=== PATIENT | male | born 1945 | race Caucasian/White ===

== ENCOUNTER 2018-01-29 18:52 | Emergency (ER) | payer MEDICAID, MEDICARE ==
[2018-01-29 19:01] VITALS: RESP 16
[2018-01-29 19:48] LABS: BASO % 0.5 % (0.0-2.0); EOS % 0.2 % (0.0-4.0); HEMOGLOBIN 12.9 g/dL (12.0-18.0); LYMPH # 1.8 K/uL (1.0-4.3); LYMPH % 35.3 % (20.0-40.0); MEAN CELL VOLUME 103.2 fL (80.0-94.0); MEAN CORPUSCULAR HEMOGLOBIN 36.5 pg (27.0-31.0); MEAN CORPUSCULAR HGB CONC 35.3 g/dL (33.0-37.0); MEAN PLATELET VOLUME 8.3 fL (7.2-11.7); MONO # 0.6 K/uL (0.0-0.8); MONO % 11.5 % (0.0-10.0); NEUT # 2.7 K/uL (1.8-7.0); NEUT % 52.5 % (50.0-75.0); NRBC % 0.1 % (0.0-2.0); RBC 3.55 Mil/uL (4.40-5.90); RED CELL DISTRIBUTION WIDTH 12.5 % (11.5-14.5); WHITE BLOOD COUNT 5.2 K/uL (4.8-10.8)
[2018-01-29 19:54] LABS: SQUAMOUS EPITHIAL < 1 /hpf (0-5); URINE BILIRUBIN NEGATIVE (NEGATIVE); URINE BLOOD NEGATIVE (NEGATIVE); URINE CLARITY Clear (Clear); URINE COLOR Yellow (YELLOW); URINE GLUCOSE (UA) NORMAL (Normal); URINE LEUKOCYTE ESTERASE NEG Leu/uL (Negative); URINE PROTEIN NEGATIVE (NEGATIVE)
[2018-01-29 20:00] LABS: ALB/GLOB RATIO 1.1 (1.0-2.1); CALCIUM 9.1 mg/dl (8.6-10.4); GFR AFRICAN-AMERICAN > 60; GFR NON-AFRICAN AMERICAN > 60; LIPASE 71 U/L (23-300)
[2018-01-29 20:03] LABS: ALT/SGPT 33 U/L (21-72); AST/SGOT 45 U/L (17-59); BLOOD UREA NITROGEN 17 mg/dL (9-20)
--- NOTE | 2018-01-29 21:12 | US ---
EXAM: US Abdomen Limited, Right Upper Quadrant CLINICAL HISTORY: 72 years old, male; Pain; Abdominal pain; Other: Ruq; Additional info: Ruq pain TECHNIQUE: Real-time ultrasound of the right upper quadrant with image documentation. COMPARISON: No relevant prior studies available. FINDINGS: Liver: Measured at 15 cm. Gallbladder: No gallstones visualized. No gallbladder wall thickening. Common bile duct: Measured at 6 mm. Pancreas: Limited evaluation. Right kidney: No acute abnormality as visualized. No hydronephrosis. IMPRESSION: No cholelithiasis visualized. Common bile duct measured at 6 mm. Reported positive sonographic Flynn's sign. Correlate clinically. Followup as warranted.
[2018-01-29] MEDS ORDERED: Sodium Chloride 0.9% 1,000 ML IV ONE (21:49)
[2018-01-29] MEDS ORDERED: Iohexol 300 100 ML IJ ONE (21:52)
[2018-01-29 23:11] VITALS: BP 173/87; PULSE 66; TEMP 98.3; O2SAT 97
--- NOTE | 2018-01-29 23:19 | CT ---
EXAM: CT Abdomen and Pelvis With Intravenous Contrast EXAM DATE/TIME: 01/29/2018 9:26 PM CLINICAL HISTORY: 72 years old, male; Pain; Abdominal pain; Flank; Right upper quadrant (ruq); Additional info: Ruq pain/tenderness TECHNIQUE: Axial computed tomography images of the abdomen and pelvis with intravenous contrast. All CT scans at this facility use one or more dose reduction techniques, viz.: automated exposure control; ma/kV adjustment per patient size (including targeted exams where dose is matched to indication; i.e. head); or iterative reconstruction technique. Coronal and sagittal reformatted images were created and reviewed. CONTRAST: 100 mL of omnipaque 00 administered intravenously. COMPARISON: US - RIGHT UPPER QUADRANT 2018-01-29 20:12 FINDINGS: The liver, spleen and pancreas are normal. No gallstones. No hydronephrosis or perinephric stranding. The right colon is distended with stool consistent with mild constipation. The appendix is not identified however there are no secondary signs of appendicitis. There is ill-defined low attenuation between the femoral vessels and inguinal canal series 3 images 125 through 128 of uncertain etiology. This may just represent a small amount of fluid. I cannot connect it to bowel.If there are prior studies, I would be happy to correlate them to determine whether this is a chronic finding. Mild degenerative changes L5-S1. IMPRESSION: Mild right-sided constipation.
--- NOTE | 2018-01-29 23:27 | C.PDOC ---
Time Seen by Provider: 01/29/18 19:15 Chief Complaint (Nursing): Abdominal Pain History Per: Patient, Family Onset/Duration Of Symptoms: Days (4) Current Symptoms Are (Timing): Still Present Severity: Moderate Location Of Pain/Discomfort: RUQ Radiation Of Pain To:: None Quality Of Discomfort: "Pain" Exacerbating Factors: Movement Alleviating Factors: None Additional History Per: Prior Records Past Medical History Reviewed: Historical Data, Nursing Documentation, Vital Signs Vital Signs: Last Vital Signs Temp 98.3 F 01/29/18 23:10 Pulse 66 01/29/18 23:10 Resp 16 01/29/18 23:10 BP 173/87 H 01/29/18 23:10 Pulse Ox 97 01/29/18 23:10 - Medical History PMH: No Chronic Diseases Surgical History: No Surg Hx - [facility] Procedures OTH & OPEN REPAIR INDIRECT INGUINAL HERNIA W GRFT OR PROSTH (02/28/13) Family History: States: Unknown Family Hx - Social History Hx Alcohol Use: Yes Hx Substance Use: No - Immunization History Hx Tetanus Toxoid Vaccination: No Hx Influenza Vaccination: No Hx Pneumococcal Vaccination: No Review Of Systems Except As Marked, All Systems Reviewed And Found Negative. Constitutional: Negative for: Fever, Weakness Cardiovascular: Negative for: Chest Pain Respiratory: Negative for: Cough, Shortness of Breath, Hemoptysis Gastrointestinal: Positive for: Abdominal Pain, Constipation. Negative for: Nausea, Vomiting, Diarrhea, Melena, Hematochezia, Hematemesis Genitourinary: Negative for: Dysuria Musculoskeletal: Negative for: Neck Pain, Back Pain Skin: Negative for: Rash Neurological: Negative for: Weakness, Numbness Physical Exam - Physical Exam Appears: Non-toxic, No Acute Distress Skin: Normal Color, Warm, Dry, No Rash Head: Atraumatic, Normacephalic Eye(s): bilateral: Normal Inspection, PERRL, EOMI Neck: Normal ROM, Supple Chest: Symmetrical, No Deformity, No Tenderness, No Ecchymosis, No Subcutaneous Emphysema Cardiovascular: Rhythm Regular Respiratory: Normal Breath Sounds, No Accessory Muscle Use Gastrointestinal/Abdominal: Soft, Tenderness (RUQ), No Distention Back: No CVA Tenderness Extremity: Normal ROM, No Pedal Edema, No Calf Tenderness Neurological/Psych: Oriented x3, Normal Motor, Normal Sensation ED Course And Treatment - Laboratory Results Result Diagrams: 01/29/18 19:43 05/25/18 19:43 Lab Interpretation: No Acute Changes O2 Sat by Pulse Oximetry: 97 Pulse Ox Interpretation: Normal - Radiology CXR: Interpreted by Me, Viewed By Me CXR Interpretation: Yes: No Acute Disease - CT Scan/US RUQ Sono Other Rad Studies (CT/US): Read By Radiologist, Radiology Report Reviewed CT/US Interpretation: IMPRESSION: No cholelithiasis visualized. Common bile duct measured at 6 mm. Reported. positive sonographic Flynn's sign. Correlate clinically. Followup as. warranted. CT abd/pelv Other Rad Studies (CT/US): Read By Radiologist, Radiology Report Reviewed CT/US Interpretation: IMPRESSION: . Mild right-sided constipation. Progress Note: Pt feels better and wants to leave right now. Reevaluation Time: 23:28 Reassessment Condition: Improved Disposition Counseled Patient/Family Regarding: Studies Performed, Diagnosis, Need For Followup, Rx Given - Disposition Referrals: Mariana Bullock MD [Staff Provider] - Disposition: HOME/ ROUTINE Disposition Time: 23:29 Condition: STABLE Additional Instructions: Follow up with your doctor for further evaluation and treatment, including colonoscopy. Return to the ER if you develop fever, vomiting, bloody or black stools, shortness of breath, chest pain, worsening of symptoms or if you have any other concerns. Prescriptions: Pantoprazole Sodium [Protonix] 40 mg PO DAILY #14 ect Polyethylene Glycol 3350 [Miralax] 17 gm PO DAILY #7 packet Instructions: Constipation, Adult (DC) Forms: [employer] ([place] African) Print Language: SETS[place] - Clinical Impression Clinical Impression: RUQ abdominal pain, Constipation
--- NOTE | 2018-01-30 11:02 | RAD ---
HISTORY: RUQ pain COMPARISON: No prior. FINDINGS: LUNGS: Reticular markings are questioned increased at the bilateral apices versus artifact from the patient's hair. The former is favored. Findings may reflect post granulomatous change. Clinically correlate further. PLEURA: No significant pleural effusion identified, no pneumothorax apparent. CARDIOVASCULAR: Normal. OSSEOUS STRUCTURES: No significant abnormalities. VISUALIZED UPPER ABDOMEN: Normal. OTHER FINDINGS: None. IMPRESSION: Potentially chronic granulomatous changes bilateral apices although an acute interstitial process is not excluded. Clinical correlation is recommended.
== END 2018-01-29 23:52 | disposition home or self-care (01) ==
LOC: C.ER 18:52
DX: K59.00 Constipation, unspecified (principal); R10.11 Right upper quadrant pain
CPT/HCPCS: 71045; 74177; 76705; 80053; 81001; 83690; 85025; 96374; 99284; C9113; Q9967